=== PATIENT | female | born 1935 | race Caucasian/White ===

== ENCOUNTER 2018-03-01 16:35 | Emergency (ER) | payer OTHER, BC ==
--- NOTE | 2018-03-01 16:46 | PDOC ---
Rapid Medical Evaluation Time Seen by Provider: 03/01/18 16:44 Medical Evaluation: I have performed a brief in-person evaluation of this patient. The patient presents with a chief complaint of: tripped on her shoes and landed on right knee. Takes baby aspirin and plavix daily. No head trauma. No LOC. Was able to bear weight after fall. Pertinent physical exam findings: significant swelling to right knee with ecchymosis I have ordered the following: xray right knee The patient will proceed to the ED for further evaluation. Discharge Disposition - Diagnosis Knee pain, right - Referrals - Patient Instructions - Post Discharge Activity
[2018-03-01 16:50] VITALS: BP 176/79; PULSE 68; TEMP 98.8; BMI 24.1
--- NOTE | 2018-03-01 17:04 | PDOC ---
History of Present Illness - General Chief Complaint: Injury Stated Complaint: FALL Time Seen by Provider: 03/01/18 16:44 History Source: Patient - History of Present Illness Initial Comments: 03/01/18 17:33 83 year old female s/p trip and fall to her knees at home at 1pm. denies head injury . patient is currently on plavix. patient reports increased swelling to right knee also has a hematoma to left knee. Past History - Past Medical History Home Medications: Ambulatory Orders Atorvastatin Ca [Lipitor] 40 mg PO HS 03/01/18 B12/Iodin/Mag/Zinc/Chitra/[id number] [Adrenoid Capsule] 1 each PO ASDIR 03/01/18 Clopidogrel Bisulfate [Clopidogrel] 75 mg PO ASDIR 03/01/18 Hydrochlorothiazide 12.5 mg PO 03/01/18 Isosorbide Mononitrate [Isosorbide Mononitrate ER] 30 mg PO ASDIR 03/01/18 Latanoprost/Pf [Latanoprost 0.005% Eye Drop] 7.5 ml PO ASDIR 03/01/18 Levothyroxine [Synthroid -] 150 mcg PO ASDIR 03/01/18 Metoprolol Tartrate 50 mg PO ASDIR 03/01/18 Ranitidine [Zantac -] 150 mg PO DAILY 03/01/18 Telmisartan/Amlodipine [Telmisartan-Amlodipine 40-5 mg] 100 mg PO ASDIR CVA: Yes (tia) COPD: No GI Disorders: Yes (gerd) HTN: Yes Hypercholesterolemia: Yes Thyroid Disease: Yes (thryroid) - Suicide/Smoking/Psychosocial Hx Smoking History: Never smoked Information on smoking cessation initiated: No Hx Alcohol Use: No Drug/Substance Use Hx: No Review of Systems - Review of Systems Able to Perform ROS?: Yes Is the patient limited [place] proficient: No Constitutional: No: Symptoms Reported, See HPI, Chills, Diaphoresis, Fever, Loss of Appetite, Malaise, Night Sweats, Weakness, Weight Stable, Unintentional Wgt. Loss, Unexplained wgt Loss, Other *Physical Exam - Vital Signs Last Vital Signs Temp Pulse Resp BP Pulse Ox 98.8 F 68 18 176/79 H 98 03/01/18 16:43 03/01/18 16:43 03/01/18 16:43 03/01/18 16:43 03/01/18 16:43 - Physical Exam General Appearance: Yes: Appropriately Dressed Cardiovascular: positive: Regular Rhythm, Regular Rate Gastrointestinal/Abdominal: positive: Normal Bowel Sounds, Soft Musculoskeletal: positive: Normal Inspection Extremity: positive: Other (swelling/hematoma to right knee. able to leg raise. ) Integumentary: positive: Normal Color, Dry, Warm Neurologic: positive: Fully Oriented, Alert, Normal Mood/Affect Progress Note - Progress Note Progress Note: A: knee hematoma P: xray negative for fracture I spoke to Dr. Canchola recommends knee immobilizer or compression pat wrap RICE. outpatient follow up if needed patient able to walk with cane to the bathroom. has a walker at home . *DC/Admit/Observation/Transfer Diagnosis at time of Disposition: Knee pain, right Qualifiers: Chronicity: acute Qualified Code(s): M25.561 - Pain in right knee Traumatic hematoma of left knee Qualifiers: Encounter type: initial encounter Qualified Code(s): S80.02XA - Contusion of left knee, initial encounter Traumatic hematoma of right knee Qualifiers: Encounter type: initial encounter Qualified Code(s): S80.01XA - Contusion of right knee, initial encounter - Discharge Dispostion Disposition: HOME - Referrals - Patient Instructions Printed Discharge Instructions: How to Prevent Falls Additional Instructions: rest ICE elevate extremities. use pat wrap as tolerated. follow up with an orthopedic doctor if symptoms persist - Post Discharge Activity
[2018-03-01] MEDS ORDERED: ACETAMINOPHEN 325 MG TABLET (FP) PO ONE (17:32)
[2018-03-01] MEDS ORDERED: ACETAMINOPHEN 325 MG TABLET (FP) ONE (17:35)
== END 2018-03-01 18:41 | disposition home or self-care (01) ==
LOC: JERFT 16:35
DX: S80.02XA Contusion of left knee, initial encounter (principal); S80.01XA Contusion of right knee, initial encounter; W18.39XA Other fall on same level, initial encounter; Y93.89 Activity, other specified; Y92.038 Other place in apartment as the place of occurrence of the external cause; Y99.8 Other external cause status; K21.9 Gastro-esophageal reflux disease without esophagitis; E03.9 Hypothyroidism, unspecified; E78.00 Pure hypercholesterolemia, unspecified; Z86.73 Personal history of transient ischemic attack (TIA), and cerebral infarction without residual deficits; Z79.82 Long term (current) use of aspirin; Z79.01 Long term (current) use of anticoagulants
CPT/HCPCS: 73562-TC-LT-FY; 73562-TC-RT-FY; 99281-25